=== PATIENT | male | born 1970 | race Hispanic/Latino ===

== ENCOUNTER 2021-03-24 15:19 | Outpatient (CLI) | payer OTHER | END 2021-03-24 15:20 | disposition home or self-care (01) | LOC: BICRAD 15:19 | PROVIDERS: ATTEND Family Medicine | DX: R07.9 Chest pain, unspecified (principal) ==

== ENCOUNTER 2021-04-07 09:37 | Outpatient (CLI) | payer OTHER | END 2021-04-07 09:38 | disposition home or self-care (01) | LOC: ULT 09:37 | PROVIDERS: ATTEND Family Medicine | DX: R10.11 Right upper quadrant pain (principal); K76.0 Fatty (change of) liver, not elsewhere classified | CPT/HCPCS: 76705 ==

== ENCOUNTER 2021-09-22 07:42 | Outpatient (CLI) | payer OTHER | END 2021-09-22 07:43 | disposition home or self-care (01) | LOC: NM 07:42 | PROVIDERS: ATTEND Internal Medicine Gastroenterology | DX: R10.11 Right upper quadrant pain (principal); K76.0 Fatty (change of) liver, not elsewhere classified; E66.9 Obesity, unspecified | CPT/HCPCS: 78227; A9537 ==

== ENCOUNTER 2021-10-28 10:55 | Outpatient (CLI) | payer OTHER ==
[2021-10-28] MEDS ORDERED: Iopamidol-370 76% 500 ML 1 ML ONE (12:07)
== END 2021-10-28 10:56 | disposition home or self-care (01) ==
LOC: BICCT 10:55
PROVIDERS: ATTEND Physician Assistant Medical
DX: K29.70 Gastritis, unspecified, without bleeding (principal); R10.11 Right upper quadrant pain; A04.8 Other specified bacterial intestinal infections; K76.0 Fatty (change of) liver, not elsewhere classified; K44.9 Diaphragmatic hernia without obstruction or gangrene
CPT/HCPCS: 74177